=== PATIENT | male | born 1955 | race Caucasian/White ===

== ENCOUNTER 2020-09-19 14:46 | Emergency (ER) | payer OTHER ==
[2020-09-19] MEDS ORDERED: MEDROL 4MG DOSEP4 MG PO (16:49)
== END 2020-09-19 17:09 | disposition home or self-care (01) ==
LOC: FER 14:46
DX: S20.212A Contusion of left front wall of thorax, initial encounter (principal); I25.2 Old myocardial infarction; I10 Essential (primary) hypertension; W19.XXXA Unspecified fall, initial encounter; Y92.009 Unspecified place in unspecified non-institutional (private) residence as the place of occurrence of the external cause
CPT/HCPCS: 71101